=== PATIENT | female | born 1995 | race Two or more races ===

== ENCOUNTER 2019-01-29 02:59 | Inpatient (IN) | payer OTHER ==
[~2019-01-29] VITALS: Ht 149.9 cm; Wt 2.3 kg
[2019-01-29] MEDS ORDERED: PRENATABS RX T1 EACH PO (03:23)
== END 2019-02-05 15:04 | disposition home or self-care (01) | DRG 807 ==
LOC: LDR 02:59 → OB/GYN 02:59
PROVIDERS: ADMIT Obstetrics & Gynecology Obstetrics
PROC: BY4FZZZ Ultrasonography of Third Trimester, Single Fetus (ICD-10-PCS; 2019-01-29)
PROC: 4A1HXCZ Monitoring of Products of Conception, Cardiac Rate, External Approach (ICD-10-PCS; 2019-01-29)
PROC: 0W8NXZZ Division of Female Perineum, External Approach (ICD-10-PCS; 2019-02-02)
PROC: 10E0XZZ Delivery of Products of Conception, External Approach (ICD-10-PCS; principal; 2019-02-02 19:00)
DX: O60.14X0 Preterm labor third trimester with preterm delivery third trimester, not applicable or unspecified (principal); Z37.0 Single live birth; Z3A.34 34 weeks gestation of pregnancy